=== PATIENT | male | born 1960 | race Caucasian/White ===

== ENCOUNTER → 2016-10-04 | Outpatient (CLI) | payer OTHER | DX: R93.8 Abnormal findings on diagnostic imaging of other specified body structures (principal); N20.0 Calculus of kidney; M12.88 Other specific arthropathies, not elsewhere classified, other specified site | CPT/HCPCS: 74250 ==

== ENCOUNTER → 2022-02-23 | Outpatient (CLI) | payer OTHER | LOC: EMI 02-21 11:15 | DX: M47.26 Other spondylosis with radiculopathy, lumbar region (principal); M43.16 Spondylolisthesis, lumbar region; M48.07 Spinal stenosis, lumbosacral region | CPT/HCPCS: 72148 ==